=== PATIENT | male | born 1980 | race Two or more races ===

== ENCOUNTER 2021-02-11 15:27 | Emergency (ER) | payer MEDICAID, OTHER ==
[~2021-02-11] VITALS: Ht 170.2 cm; Wt 95.3 kg
[2021-02-11 22:21] LABS: Basophils # (auto) 0 10 ^3/uL (0-0.2); Basophils % (auto) 0.4 % (0.0-2.0); Eosinophils # (auto) 0 10 ^3/uL (0-0.8); Eosinophils % (auto) 0.2 % (0.0-7.0); Hematocrit 46.7 % (41.0-53.0); Hemoglobin 16.1 g/dL (13.5-17.5); Lymphocytes # (auto) 3.1 10 ^3/uL (0.4-5.4); Lymphocytes % (auto) 25.5 % (10.0-50.0); Mean Corpuscular Hemoglobin 32.5 pg (28.0-32.0); Mean Corpuscular Hgb Conc. 34.5 g/dL (32.0-36.0); Mean Corpuscular Volume 94.2 fL (80.0-100.0); Monocytes # (auto) 0.9 10 ^3/uL (0-1.3); Monocytes % (auto) 7.7 % (0.0-12.0); Neutrophils # (auto) 8.1 10 ^3/uL (1.6-8.6); Neutrophils % (auto) 66.2 % (37.0-80.0); Nucleated Red Blood Cells % 0.3 %; Red Blood Cells 4.96 10^6/uL (4.5-5.90); White Blood Cell 12.2 10^3/uL (4.4-10.8)
[2021-02-11 22:38] LABS: Albumin 4.3 g/dL (3.4-5.0); Calcium 9.1 mg/dL (8.5-10.1); Magnesium 3.4 mg/dL (1.6-2.6)
[2021-02-11 22:44] LABS: BUN/Creatinine Ratio 20.7; Bilirubin, Total 0.6 mg/dL (0.2-1.0); Total Protein 8.4 g/dL (6.4-8.2)
[2021-02-12 01:01] VITALS: BP 151/89
== END 2021-02-12 01:03 | disposition home or self-care (01) ==
LOC: ER 15:27
DX: R07.89 Other chest pain (principal); E78.5 Hyperlipidemia, unspecified; I10 Essential (primary) hypertension
CPT/HCPCS: 36415; 71046; 80053; 83735; 84484; 85025; 93005; 99285; J7030

== ENCOUNTER 2021-10-10 07:28 | Emergency (ER) | payer MEDICAID ==
[~2021-10-10] VITALS: Ht 175.3 cm; Wt 85.4 kg
[2021-10-10] MEDS ORDERED: KETOROLAC TROMETH 30 MG/ML 1ML VIAL IV ONE (08:15)
[2021-10-10] MEDS ORDERED: METOCLOPRAMIDE HCL 5MG/ml INJ 2ml VIAL IV ONE (08:15)
[2021-10-10] MEDS ORDERED: SODIUM CHLORIDE 0.9% 500 ML IV ONE (08:15)
[2021-10-10 08:26] LABS: Basophils # (auto) 0 10 ^3/uL (0-0.2); Basophils % (auto) 0.6 % (0.0-2.0); Eosinophils # (auto) 0 10 ^3/uL (0-0.8); Eosinophils % (auto) 0.4 % (0.0-7.0); Hematocrit 49.5 % (41.0-53.0); Hemoglobin 16.5 g/dL (13.5-17.5); Lymphocytes # (auto) 1.7 10 ^3/uL (0.4-5.4); Lymphocytes % (auto) 21.4 % (10.0-50.0); Mean Corpuscular Hemoglobin 31.3 pg (28.0-32.0); Mean Corpuscular Hgb Conc. 33.4 g/dL (32.0-36.0); Mean Corpuscular Volume 93.8 fL (80.0-100.0); Monocytes # (auto) 0.4 10 ^3/uL (0-1.3); Monocytes % (auto) 4.8 % (0.0-12.0); Neutrophils # (auto) 5.9 10 ^3/uL (1.6-8.6); Neutrophils % (auto) 72.8 % (37.0-80.0); Nucleated Red Blood Cells % 0.1 %; Red Blood Cells 5.28 10^6/uL (4.5-5.90); Red Cell Distribution Width 12.8 % (11.8-14.3); White Blood Cell 8.1 10^3/uL (4.4-10.8)
[2021-10-10] MEDS: SODIUM CHLORIDE 0.9% 1,000 ML IV ONE ×2 (08:35→09:59)
[2021-10-10 09:19] LABS: Urine WBC None Seen /hpf (0 - 3)
[2021-10-10 09:28] LABS: Urine Bacteria NONE SEEN /hpf (None Seen); Urine Blood Negative /uL (Negative); Urine Specific Gravity 1.011 (1.001-1.035)
[2021-10-10 09:28] LABS: Albumin 4.4 g/dL (3.4-5.0); Calcium 9.3 mg/dL (8.5-10.1); Magnesium 2.4 mg/dL (1.6-2.6); Potassium 3.7 mmol/L (3.5-5.1)
[2021-10-10 09:33] LABS: BUN/Creatinine Ratio 17.6; Bilirubin, Total 0.8 mg/dL (0.2-1.0); Total Protein 7.8 g/dL (6.4-8.2)
[2021-10-10 10:46] VITALS: BP 114/67
[2021-10-10] MEDS ORDERED: ATEN-60 PO (10:46)
[2021-10-10] MEDS ORDERED: MECL1TAB42 PO (10:46)
[2021-10-10] MEDS ORDERED: NAP500T PO (10:46)
[2021-10-10] MEDS ORDERED: CYCL-837 PO (10:46)
== END 2021-10-10 11:05 | disposition home or self-care (01) ==
LOC: ER 07:28
DX: G44.209 Tension-type headache, unspecified, not intractable (principal); I10 Essential (primary) hypertension; F43.9 Reaction to severe stress, unspecified; E78.5 Hyperlipidemia, unspecified
CPT/HCPCS: 36415; 70450; 70486; 71046; 80053; 81001; 83735; 85025; 93005; 96361; 96374; 96375; 99285; J1885; J2765; J7030; J7040

== ENCOUNTER 2022-09-27 11:34 | Emergency (ER) | payer MEDICAID ==
[~2022-09-27] VITALS: Ht 170.2 cm; Wt 89.9 kg
[~2022-09-27 11:34] MED LIST: ATEN-60 PO; CYCL-837 PO; MECL1TAB42 PO; NAP500T PO
[2022-09-27 12:30] VITALS: BP 141/85; PULSE 60; RESP 18; TEMP 97.5; O2SAT 97
[2022-09-27] MEDS ORDERED: TOB03OS OP (13:24)
== END 2022-09-27 13:32 | disposition home or self-care (01) ==
LOC: ER 11:34
DX: T15.91XA Foreign body on external eye, part unspecified, right eye, initial encounter (principal); I10 Essential (primary) hypertension; E78.5 Hyperlipidemia, unspecified; Z79.2 Long term (current) use of antibiotics; Z79.899 Other long term (current) drug therapy; X58.XXXA Exposure to other specified factors, initial encounter; Y93.89 Activity, other specified; Y92.89 Other specified places as the place of occurrence of the external cause; Y99.8 Other external cause status
CPT/HCPCS: 65222